=== PATIENT | female | born 2000 | race Caucasian/White ===

== ENCOUNTER 2024-12-29 21:24 | Outpatient (REF) | payer BC, SELFPAY ==
[2025-01-01 21:08] LABS: Age Gdln ACOG Testing Note (.); IGP, rfx Aptima HPV ASCU Note (.)
== END 2024-12-29 21:25 | disposition home or self-care (01) ==
LOC: LAB 21:24
PROVIDERS: PCP Family Medicine; Visit Provider Physician Assistant
DX: Z01.419 Encounter for gynecological examination (general) (routine) without abnormal findings (principal)
CPT/HCPCS: 88175